=== PATIENT | female | born 1985 | race Caucasian/White ===

== ENCOUNTER 2021-05-02 00:50 | Emergency (ER) | payer OTHER ==
[2021-05-02 01:00] VITALS: BP 106/51; PULSE 78; TEMP 97; BMI 21.9
[2021-05-02 01:52] LABS: EPI CELLS 15 /uL (0-25.1); HYALINE CASTS 4 /uL (0-3.1); URINE APPEARANCE CLOUDY; URINE BACTERIA 2531 /uL (0-1359); URINE BILIRUBIN NEGATIVE (NEGATIVE); URINE COLOR ORANGE; URINE GLUCOSE (UA) NEGATIVE (NEGATIVE); URINE KETONE NEGATIVE (NEGATIVE); URINE LEUK ESTERASE 3+ (NEGATIVE); URINE NITRITE NEGATIVE (NEGATIVE); URINE PROTEIN 2+ (NEGATIVE); URINE RBC 94 /uL (0-23.9); URINE UROBILINOGEN 0.2 mg/dL (0.2-1.0); URINE WBC 637 /uL (0-25.8)
[2021-05-02] MEDS ORDERED: CEPHALEXIN MONOHYDRATE 500 MG CAPSULE (UD) PO ONE (01:54)
[2021-05-02] MEDS ORDERED: CEPHALEXIN MONOHYDRATE 500 MG CAPSULE (UD) ONE (02:01)
== END 2021-05-02 02:05 | disposition home or self-care (01) ==
LOC: JER 00:50
DX: O23.12 Infections of bladder in pregnancy, second trimester (principal); Z3A.20 20 weeks gestation of pregnancy
CPT/HCPCS: 81003; 87086; 87186; 99283-25

== ENCOUNTER 2021-09-16 11:10 | Inpatient (IN) | payer OTHER ==
[2021-09-16] MEDS ORDERED: ELECTROLYTE-148 SOLN 500 ML IV ONE (13:44)
[2021-09-16] MEDS: ELECTROLYTE-148 SOLN 1,000 ML IV SCH (23:00)
[2021-09-16 23:52] VITALS: BMI 30.4
[2021-09-17 00:05] LABS: BASO % 0.7 % (0-2.0); EOS % 1.4 % (0-4.5); HEMATOCRIT 28.7 % (32.4-45.2); HEMOGLOBIN 9.7 GM/dL (10.7-15.3); LYMPH % 22.6 % (8-40); MCH 28.6 pg (25.7-33.7); MEAN CELL VOLUME 84.2 fl (80-96); MEAN PLT VOLUME 8.3 fl (7.5-11.1); MONO % 4.5 % (3.8-10.2); NEUT % 70.8 % (42.8-82.8); PLATELET COUNT 247 10^3/uL (134-434); RDW 15.5 % (11.6-15.6); WHITE BLOOD COUNT 9.3 K/mm3 (4.0-10.0)
[2021-09-17 00:18] LABS: INR 0.85 (0.83-1.09); PROTHROMBIN TIME (PATIENT) 9.8 SEC (9.7-13.0)
[2021-09-17 00:20] LABS: ACTIVATED PTT 23.1 SECONDS (25.2-36.5)
[2021-09-17 00:28] LABS: BLOOD UREA NITROGEN 5.4 mg/dL (7-18); CALCIUM 8.5 mg/dL (8.5-10.1)
[2021-09-17 00:32] LABS: CREATININE 0.4 mg/dL (0.55-1.3)
[2021-09-17] MEDS ORDERED: OXYTOCIN 30 UNITS in 0.9% NS 30 UNIT/500 ML INFUS.BAG IVPB SCH (00:45)
[2021-09-17] MEDS ORDERED: FENTANYL/BUPIVACAINE/NS/PF - PCEA - 50 ML DISP.SYRIN EP ONE ×2 (03:37→09:02)
[2021-09-17] MEDS: ELECTROLYTE-148 SOLN 1,000 ML IV SCH ×2 (04:00→07:50)
[2021-09-17] MEDS: FENTANYL/BUPIVACAINE/NS/PF - PCEA - 50 ML DISP.SYRIN EP SCH ×2 (04:10→09:04)
[2021-09-17] MEDS ORDERED: NALOXONE HCL 0.4 MG/ML VIAL IVPUSH PRN (04:20)
[2021-09-17] MEDS ORDERED: OXYTOCIN 30 UNITS in 0.9% NS 30 UNIT/500 ML INFUS.BAG IVPB ONE (08:27)
[2021-09-17] MEDS ORDERED: LIDOCAINE HCL 1% PRESERVATIVE FREE - 30ML VIAL ONE (09:02)
[2021-09-17] MEDS ORDERED: OXYTOCIN 20 UNITS in 0.9% NS 20 UNIT/1,000 ML INFUS.BAG IV ONE (09:02)
[2021-09-17] MEDS ORDERED: LIDOCAINE HCL/PF 2% SDV 5ML VIAL ONE (11:49)
[2021-09-17] MEDS ORDERED: CITRIC ACID/SODIUM CITRATE 30 ML UNIT-DOSE CUP PO ONE (11:52)
[2021-09-17] MEDS ORDERED: ceFAZolin SODIUM 1 GM VIAL IVPB ONE (12:10)
[2021-09-17] MEDS ORDERED: FENTANYL CITRATE/PF 50 MCG/ML VIAL ONE ×2 (12:13→12:34)
[2021-09-17] MEDS ORDERED: IBUPROFEN 800 MG/8 ML IJ IVPB PRN (12:56)
[2021-09-17] MEDS ORDERED: ACETAMINOPHEN 325 MG TABLET (FP) PO PRN (12:56)
[2021-09-17] MEDS ORDERED: METHYLERGONOVINE MALEATE 0.2 MG/1 ML AMP IM PRN (12:56)
[2021-09-17] MEDS ORDERED: ONDANSETRON 4 MG/2 ML VIAL IVPUSH PRN (13:01)
[2021-09-17] MEDS: OXYTOCIN 20 UNITS in 0.9% NS 20 UNIT/1,000 ML INFUS.BAG IV SCH ×2 (13:15→21:32)
[2021-09-17] MEDS: FERROUS SO4 325 MG TABLET (FP) PO SCH (21:31)
[2021-09-18] MEDS ORDERED: oxyCODONE HCL 5 MG TABLET PO PRN (00:56)
[2021-09-18 08:22] LABS: BASO % 0.3 % (0-2.0); EOS % 0.5 % (0-4.5); HEMATOCRIT 25.8 % (32.4-45.2); HEMOGLOBIN 8.7 GM/dL (10.7-15.3); LYMPH % 15.7 % (8-40); MCH 28.5 pg (25.7-33.7); MCHC 33.6 g/dl (32.0-36.0); MEAN CELL VOLUME 84.6 fl (80-96); MEAN PLT VOLUME 8.3 fl (7.5-11.1); MONO % 4.4 % (3.8-10.2); NEUT % 79.1 % (42.8-82.8); PLATELET COUNT 228 10^3/uL (134-434); RBC 3.04 M/mm3 (3.60-5.2); RDW 15.3 % (11.6-15.6); WHITE BLOOD COUNT 8.9 K/mm3 (4.0-10.0)
[2021-09-18] MEDS: FERROUS SO4 325 MG TABLET (FP) PO SCH ×2 (10:06→21:13)
[2021-09-18] MEDS: PRENATAL VITAMINS W/ FOLIC ACID TABLET (FP) PO SCH (10:06)
[2021-09-18] MEDS: IBUPROFEN 600 MG TABLET (FP) PO PRN ×3 (11:11→21:13)
[2021-09-18] MEDS: SIMETHICONE 80 MG TAB.CHEW (FP) PO PRN ×3 (11:12→21:13)
[2021-09-18] MEDS ORDERED: BISACODYL 10 MG SUPP.RECT RC PRN (12:56)
[2021-09-18] MEDS: SENNOSIDES/DOCUSATE COMBO (SENNA PLUS) TABLET (UD) PO PRN (21:13)
[2021-09-19] MEDS: FERROUS SO4 325 MG TABLET (FP) PO SCH ×3 (09:39→22:01)
[2021-09-19] MEDS: PRENATAL VITAMINS W/ FOLIC ACID TABLET (FP) PO SCH (09:39)
[2021-09-19] MEDS: SENNOSIDES/DOCUSATE COMBO (SENNA PLUS) TABLET (UD) PO PRN (19:50)
[2021-09-19] MEDS: IBUPROFEN 600 MG TABLET (FP) PO PRN (19:50)
[2021-09-19] MEDS: SIMETHICONE 80 MG TAB.CHEW (FP) PO PRN (19:50)
[2021-09-20] MEDS: IBUPROFEN 600 MG TABLET (FP) PO PRN (07:44)
[2021-09-20] MEDS: SIMETHICONE 80 MG TAB.CHEW (FP) PO PRN (07:44)
[2021-09-20 08:27] LABS: BASO % 0.3 % (0-2.0); EOS % 2.6 % (0-4.5); HEMATOCRIT 27.4 % (32.4-45.2); LYMPH % 26.7 % (8-40); MEAN CELL VOLUME 84.9 fl (80-96); MEAN PLT VOLUME 8.1 fl (7.5-11.1); MONO % 5.1 % (3.8-10.2); NEUT % 65.3 % (42.8-82.8); PLATELET COUNT 266 10^3/uL (134-434); RBC 3.23 M/mm3 (3.60-5.2); RDW 15.4 % (11.6-15.6); WHITE BLOOD COUNT 6.7 K/mm3 (4.0-10.0)
[2021-09-20] MEDS: PRENATAL VITAMINS W/ FOLIC ACID TABLET (FP) PO SCH (09:15)
[2021-09-20] MEDS: FERROUS SO4 325 MG TABLET (FP) PO SCH (09:15)
[2021-09-20 09:23] VITALS: BP 100/62; PULSE 85; TEMP 98.1
== END 2021-09-20 12:30 | disposition home or self-care (01) | DRG 540 ==
LOC: JDEL 11:10 → JLDR 21:20 → J3W 09-17 14:50
PROVIDERS: ADMIT Student in an Organized Health Care Education/Training Program; ATTEND Student in an Organized Health Care Education/Training Program
PROC: 10D00Z1 Extraction of Products of Conception, Low, Open Approach (ICD-10-PCS; principal; 2021-09-17 12:30)
DX: O34.211 Maternal care for low transverse scar from previous cesarean delivery (principal); N85.8 Other specified noninflammatory disorders of uterus; Z3A.39 39 weeks gestation of pregnancy; O36.8330 Maternal care for abnormalities of the fetal heart rate or rhythm, third trimester, not applicable or unspecified; Z37.0 Single live birth
CPT/HCPCS: 36415; 59025; 80048; 83986-QW; 85025; 85610; 85730; 86780; 86850; 86900; 86901; 88307-TC; C9803-CS; U0003; U0005